=== PATIENT | male | born 1980 | race Asian ===

== ENCOUNTER 2020-09-01 22:55 | Emergency (ER) | payer OTHER ==
[~2020-09-01] VITALS: Ht 185.4 cm; Wt 99.8 kg
[2020-09-01 23:01] VITALS: Ht 185.4 cm; Wt 99.8 kg
[2020-09-01 23:30] LABS: CALCIUM 9.7 mg/dL (8.5-10.1); CARBON DIOXIDE 24.7 mmol/L (21-32); CHLORIDE SERUM 99 mmol/L (98-107); CREATININE SERUM 1.3 mg/dL (0.7-1.3); GFR1 > 60 mL/min; GLUCOSE SERUM 334 mg/dL (74-106); POTASSIUM SERUM 3.3 mmol/L (3.5-5.1); SODIUM SERUM 138 mmol/L (136-145)
[2020-09-01 23:34] LABS: PLATELET COUNT 239 x10^3mcL (152-348); RED CELL DISTRIBUTION WIDTH 13.1 % (12.1-16.2)
[2020-09-01 23:50] LABS: MONOCYTE 7 % (0-7); SEGMENTED NEUTROPHILS 61 % (37-75)
[2020-09-01 23:52] VITALS: BP 116/84
== END 2020-09-01 23:52 | disposition short-term general hospital (02) ==
LOC: ED 22:55
PROVIDERS: Emergency Medicine
DX: I21.3 ST elevation (STEMI) myocardial infarction of unspecified site (principal); E11.65 Type 2 diabetes mellitus with hyperglycemia; I10 Essential (primary) hypertension
CPT/HCPCS: J1644; J3010